=== PATIENT | male | born 1940 | race Caucasian/White ===

== ENCOUNTER 2019-02-19 12:59 | Inpatient (IN) | payer MEDICARE ==
--- NOTE | 2019-02-19 14:11 | EDM.PDOC ---
ED HPI GENERAL MEDICAL PROBLEM - General Chief Complaint: Lower Extremity Injury/Pain Stated Complaint: MEDICAL VIA [facility] Time Seen by Provider: 02/19/19 14:03 Source of Information: Reports: Patient, EMS, Family - History of Present Illness INITIAL COMMENTS - FREE TEXT/NARRATIVE: Patient presents by ambulance from home after caretakers noticed he was having trouble supporting himself with his right leg. They last saw him at 0700 hrs. and he was moving around without difficulty. They were observing him approximately 1300 hrs. and noticed that he was having trouble supporting his right side when he was standing. The foot and ankle would turn in and he would almost fall to the floor as she seemed unable to support himself. He has not had any new injury. No other recent illness change. Onset: Today, Sudden Duration: Hour(s): (6) Location: Reports: Lower Extremity, Right Severity: Mild Improves with: Reports: None Worsens with: Reports: Movement - Related Data Allergies Allergy/AdvReac Type Severity Reaction Status Date / Time No Known Allergies Allergy Verified 02/19/19 13:24 Home Meds: Home Meds Aspirin 325 mg PO DAILY 09/14/13 [History] Hydrochlorothiazide 25 mg PO DAILY 09/14/13 [History] Lisinopril 10 mg PO DAILY 09/14/13 [History] Simvastatin 20 mg PO BEDTIME 09/14/13 [History] Alendronate Sodium 70 mg PO WEEKLY 02/19/19 [History] Calcium Carbonate [Oyster Shell Calcium] 500 mg PO DAILY 02/19/19 [History] Cholecalciferol (Vitamin D3) [Vitamin D] 1 tab PO DAILY 02/19/19 [History] Furosemide [Lasix] 20 mg PO DAILY 02/19/19 [History] Past Medical History HEENT History: Reports: Impaired Vision Cardiovascular History: Reports: High Cholesterol, Hypertension Gastrointestinal History: Reports: None Genitourinary History: Reports: Prostate Disorder, Urinary Incontinence Musculoskeletal History: Reports: Arthritis Neurological History: Reports: TIA Psychiatric History: Reports: Dementia Endocrine/Metabolic History: Reports: Obesity/BMI 30+ - Past Surgical History Head Surgeries/Procedures: Reports: None Cardiovascular Surgical History: Reports: None GI Surgical History: Reports: Appendectomy, Hernia, Inguinal Male Surgical History: Reports: None Endocrine Surgical History: Reports: None Neurological Surgical History: Reports: None Musculoskeletal Surgical History: Reports: None Dermatological Surgical History: Reports: None Social & Family History - Tobacco Use Smoking Status *Q: Current Every Day Smoker Years of Tobacco use: 20 Packs/Tins Daily: 0.2 Used Tobacco, but Quit: No Second Hand Smoke Exposure: No - Caffeine Use Caffeine Use: Reports: Coffee - Recreational Drug Use Recreational Drug Use: No - Living Situation & Occupation Living situation: Reports: , with Family Occupation: Retired Review of Systems - Review of Systems Review Of Systems: See Below Constitutional: Reports: No Symptoms Nose: Reports: No Symptoms Respiratory: Reports: No Symptoms Cardiovascular: Reports: No Symptoms. Denies: Chest Pain GI/Abdominal: Reports: No Symptoms Musculoskeletal: Reports: Muscle Pain Neurological: Reports: Tingling (Right leg), Difficulty Walking (Can't bear weight on right leg. Needs assistance to move about.) Psychiatric: Reports: Other (Cognitive deficiency) ED EXAM, GENERAL - Physical Exam Exam: See Below Free Text/Narrative:: Patient is in no distress sitting upright on the cart. 2 of his daughters are in attendance. Exam Limited By: No Limitations General Appearance: Alert, No Apparent Distress Throat/Mouth: Normal Inspection Neck: Normal Inspection Respiratory/Chest: No Respiratory Distress Cardiovascular: Regular Rate, Rhythm GI/Abdominal: Normal Bowel Sounds, Soft, Non-Tender Extremities: Pedal Edema, Other (Resisted right hip and knee extension shows weakness. Flexion challenge with a right leg shows reasonably good strength. There is bilateral long-term edema in the legs. Dorsiflexion of the right foot is weak but plantar flexion shows moderately good strength.) Neurological: Memory Loss Remote Events Psychiatric: Normal Affect Course - Vital Signs Last Recorded V/S: Last Vital Signs Temp 37.1 C 02/19/19 18:26 Pulse 79 02/19/19 18:26 Resp 16 02/19/19 18:26 BP 136/75 02/19/19 18:26 Pulse Ox 96 02/19/19 18:26 - Orders/Labs/Meds Orders: Active Orders 24 hr Category Date Time Status Patient Status Manage Transfer [TRANSFER] Routine ADT 02/19/19 19:48 Active Resuscitation Status Routine Resus Stat 02/19/19 19:51 Ordered Labs: Laboratory Tests 02/19/19 02/19/19 02/19/19 Range/Units 14:25 14:25 14:25 WBC 12.2 H (4.5-11.0) K/uL RBC 5.26 (4.30-5.90) M/uL Hgb 13.5 (12.0-15.0) g/dL Hct 44.0 (40.0-54.0) % MCV 84 (80-98) fL MCH 26 L (27-31) pg MCHC 31 L (32-36) % Plt Count 293 (150-400) K/uL Neut % (Auto) 73 H (36-66) % Lymph % (Auto) 10 L (24-44) % [place] % (Auto) 13 H (2-6) % Eos % (Auto) 3 (2-4) % Baso % (Auto) 0 (0-1) % PT 10.7 (9.5-12.0) sec INR 0.97 (0.80-1.20) Sodium 142 (140-148) mmol/L Potassium 4.1 (3.6-5.2) mmol/L Chloride 105 (100-108) mmol/L Carbon Dioxide 30 (21-32) mmol/L Anion Gap 7.0 (5.0-14.0) mmol/L BUN 29 H (7-18) mg/dL Creatinine 1.6 H (0.8-1.3) mg/dL Est Cr Clr Drug Dosing 36.15 mL/min Estimated GFR (MDRD) 42 L (>60) Glucose 104 (74-106) mg/dL Calcium 9.4 (8.5-10.1) mg/dL Total Bilirubin 0.3 (0.2-1.0) mg/dL AST 15 (15-37) U/L ALT 20 (12-78) U/L Alkaline Phosphatase 69 (46-116) U/L Total Protein 6.6 (6.4-8.2) g/dL Albumin 2.9 L (3.4-5.0) g/dL Globulin 3.7 H (2.3-3.5) g/dL Albumin/Globulin Ratio 0.8 L (1.2-2.2) - Radiology Interpretation Free Text/Narrative:: CT scan of head, noncontrast, shows age-related atrophy but no evidence of hemorrhage or other acute changes. There is ventriculomegaly noted. - Re-Assessments/Exams Free Text/Narrative Re-Assessment/Exam: 02/19/19 19:50 I reviewed test results and imaging findings with patient and daughters. This still seems to be an ischemic stroke event. He has been outside of any treatment window since before he arrived here. Additionally, I discussed that given his current renal function, even transfer so more else for further diagnostic workup may be ill-advised because of potential worsening of renal function. Even if MRI imaging was obtained in a few days and an abnormality was found, he and family do not feel they would want any intervention performed. I reviewed his case with Dr. White, the hospitalist of the day. He accepts the patient for admission here. Departure - Departure Time of Disposition: 18:30 Disposition: Admitted As Inpatient 67 Condition: Good Clinical Impression: Stroke - Discharge Information *PRESCRIPTION DRUG MONITORING PROGRAM REVIEWED*: Not Applicable *COPY OF PRESCRIPTION DRUG MONITORING REPORT IN PATIENT MOHIT: Not Applicable Referrals: Deven Arriaza NP [Primary Care Provider] - Forms: ED Department Discharge
--- NOTE | 2019-02-19 14:52 | CRLCT ---
INDICATION: New right leg extensor weakness TECHNIQUE: CT head without contrast. COMPARISON: None available FINDINGS: There is age-related cerebral and cerebellar cortical atrophy. There is ventriculomegaly which appears out of proportion to the degree of cortical atrophy. There is no mass effect or midline shift. White matter hypodensities are suggestive of advanced chronic small vessel ischemic changes. There are chronic ganglionic, caudate head, and thalamic lacunar infarcts. There is no loss of case-white differentiation. There is no evidence of an acute intracranial hemorrhage. No acute calvarial fracture is seen. There is a 2.4 x 1.2 cm right occipital scalp soft tissue density, nonspecific. The visualized paranasal sinuses and mastoid air cells are clear. The visualized orbits are within normal limits. IMPRESSION: No evidence of an acute intracranial hemorrhage, mass effect or loss of case-white differentiation. Ventriculomegaly which appears out of proportion to the degree of cortical atrophy. Correlate clinically to exclude communicating hydrocephalus. Chronic ischemic changes with old lacunar infarcts. A 2.4 cm right occipital scalp soft tissue density, nonspecific. Correlate with physical exam. Dictated by Slava Duarte MD @ 02/19/2019 2:51:24 PM Please note that all CT scans at this facility use dose modulation, iterative reconstruction, and/or weight-based dosing when appropriate to reduce radiation dose to as low as reasonably achievable. Dictated by: Slava Duarte MD @ 02/19/2019 14:51:29 (Electronically Signed)
--- NOTE | 2019-02-19 20:02 | PCM.HP ---
H&P History of Present Illness - General Date of Service: 02/19/19 Admit Problem/Dx: Admission Diagnosis/Problem Admission Diagnosis/Problem CVA, Cerebrovascular accident Source of Information: Patient, Family, Provider, RN Notes Reviewed History Limitations: Reports: Altered Mental Status (Dementia), Other ( Expressive aphasia) - History of Present Illness Initial Comments - Free Text/Narative: Mr. Clemens is a 78-year-old gentleman who was admitted through the emergency department with right leg weakness and dehydration secondary to acute CVA. He has a known history of cerebrovascular disease and his had previous cerebrovascular accidents, main residual effect is expressive aphasia. He was well when he got up this morning and was able to get himself into the bathroom. Mid morning was unable to get up and had only minimal strength in his right leg. He was brought into the emergency department for further evaluation, by the time he arrived here the six-hour window had passed. He denies any other new neurologic symptoms, family reports is degree of expressive aphasia is stable from baseline. He is not interested in pursuing further aggressive evaluation. He does have some underlying dementia including short and long-term memory impairment. Family confirms that they do not want to consider further aggressive interventions including MRI, MRA, echocardiogram or other evaluations. They prefer at this time more of a palliative care approach to management. - Related Data Allergies/Adverse Reactions: Allergies Allergy/AdvReac Type Severity Reaction Status Date / Time No Known Allergies Allergy Verified 02/19/19 13:24 Home Medications: Home Meds Aspirin 325 mg PO DAILY 09/14/13 [History] Hydrochlorothiazide 25 mg PO DAILY 09/14/13 [History] Lisinopril 10 mg PO DAILY 09/14/13 [History] Simvastatin 20 mg PO BEDTIME 09/14/13 [History] Alendronate Sodium 70 mg PO WEEKLY 02/19/19 [History] Calcium Carbonate [Oyster Shell Calcium] 500 mg PO DAILY 02/19/19 [History] Cholecalciferol (Vitamin D3) [Vitamin D] 1 tab PO DAILY 02/19/19 [History] Furosemide [Lasix] 20 mg PO DAILY 02/19/19 [History] Past Medical History HEENT History: Reports: Impaired Vision Cardiovascular History: Reports: High Cholesterol, Hypertension Gastrointestinal History: Reports: None Genitourinary History: Reports: Prostate Disorder, Urinary Incontinence Musculoskeletal History: Reports: Arthritis Neurological History: Reports: TIA Psychiatric History: Reports: Dementia Endocrine/Metabolic History: Reports: Obesity/BMI 30+ - Past Surgical History Head Surgeries/Procedures: Reports: None Cardiovascular Surgical History: Reports: None GI Surgical History: Reports: Appendectomy, Hernia, Inguinal Male Surgical History: Reports: None Endocrine Surgical History: Reports: None Neurological Surgical History: Reports: None Musculoskeletal Surgical History: Reports: None Dermatological Surgical History: Reports: None Social & Family History - Tobacco Use Smoking Status *Q: Current Every Day Smoker Years of Tobacco use: 20 Packs/Tins Daily: 0.2 Used Tobacco, but Quit: No Second Hand Smoke Exposure: No - Caffeine Use Caffeine Use: Reports: Coffee - Recreational Drug Use Recreational Drug Use: No - Living Situation & Occupation Living situation: Reports: , with Family Occupation: Retired H&P Review of Systems - Review of Systems: Review Of Systems: See Below General: Reports: No Symptoms HEENT: Reports: No Symptoms Pulmonary: Reports: No Symptoms Cardiovascular: Reports: No Symptoms Gastrointestinal: Reports: No Symptoms Genitourinary: Reports: No Symptoms Musculoskeletal: Reports: No Symptoms Skin: Reports: No Symptoms Psychiatric: Reports: Confusion. Denies: Agitation Neurological: Reports: Confusion, Pre-Existing Deficit (Expressive aphasia), Difficulty Walking, Weakness (Right lower extremity). Denies: Numbness, Change in Speech (Baseline expressive aphasia) Hematologic/Lymphatic: Reports: No Symptoms Immunologic: Reports: No Symptoms Exam - Exam Exam: See Below - Vital Signs Vital Signs: Last Vital Signs Temp 98.8 F 02/19/19 18:26 Pulse 79 02/19/19 18:26 Resp 16 02/19/19 18:26 BP 136/75 02/19/19 18:26 Pulse Ox 96 02/19/19 18:26 Weight: 200 lb - Exam General: Alert, Cooperative, Mild Distress. No: Oriented HEENT: PERRLA, EOMI, Hearing Intact, Normal Nasal Septum, Posterior Pharynx Clear. No: Mucosa Moist & [place] Neck: Supple, Trachea Midline, +2 Carotid Pulse wo Bruit Lungs: Clear to Auscultation, Normal Respiratory Effort, Decreased Breath Sounds Cardiovascular: Regular Rate, Regular Rhythm, Normal S1, Normal S2. No: Systolic Murmur, Diastolic Murmur GI/Abdominal Exam: Soft, Non-Tender, No Organomegaly, No Distention Back Exam: Normal Inspection, Full Range of Motion Extremities: Non-Tender, Pedal Edema Skin: Warm, Dry, Intact Neurological: Cranial Nerves Intact, Other (Severe weakness to plantar flexion and dorsi flexion of the fourth, moderate weakness to extension the leg at the knee and severe weakness with flexion). No: Strength Equal Bilateral, Normal Speech, Normal Tone Neuro Extensive - Motor, Sensory, Reflexes: Babinski (On the right) - Patient Data Lab Results Last 24 hrs: Laboratory Results - last 24 hr 02/19/19 02/19/19 02/19/19 Range/Units 14:25 14:25 14:25 WBC 12.2 H (4.5-11.0) K/uL RBC 5.26 (4.30-5.90) M/uL Hgb 13.5 (12.0-15.0) g/dL Hct 44.0 (40.0-54.0) % MCV 84 (80-98) fL MCH 26 L (27-31) pg MCHC 31 L (32-36) % Plt Count 293 (150-400) K/uL Neut % (Auto) 73 H (36-66) % Lymph % (Auto) 10 L (24-44) % [place] % (Auto) 13 H (2-6) % Eos % (Auto) 3 (2-4) % Baso % (Auto) 0 (0-1) % PT 10.7 (9.5-12.0) sec INR 0.97 (0.80-1.20) Sodium 142 (140-148) mmol/L Potassium 4.1 (3.6-5.2) mmol/L Chloride 105 (100-108) mmol/L Carbon Dioxide 30 (21-32) mmol/L Anion Gap 7.0 (5.0-14.0) mmol/L BUN 29 H (7-18) mg/dL Creatinine 1.6 H (0.8-1.3) mg/dL Est Cr Clr Drug Dosing 36.15 mL/min Estimated GFR (MDRD) 42 L (>60) Glucose 104 (74-106) mg/dL Calcium 9.4 (8.5-10.1) mg/dL Total Bilirubin 0.3 (0.2-1.0) mg/dL AST 15 (15-37) U/L ALT 20 (12-78) U/L Alkaline Phosphatase 69 (46-116) U/L Total Protein 6.6 (6.4-8.2) g/dL Albumin 2.9 L (3.4-5.0) g/dL Globulin 3.7 H (2.3-3.5) g/dL Albumin/Globulin Ratio 0.8 L (1.2-2.2) Result Diagrams: 02/19/19 14:25 02/19/19 14:25 *Q Meaningful Use (ADM) - VTE Risk Assess *Q Each Risk Factor Represents 1 Point: Swollen Legs, Current, Obesity ( BMI > 25 kg/m2) Total Score 1 Point Risk Factors: 2 Each Risk Factor Represents 2 Points: None Total Score 2 Point Risk Factors: 0 Each Risk Factor Represents 3 Points: Age 75 Years or Greater Total Score 3 Point Risk Factors: 3 Each Risk Factor Represents 5 Points: Stroke, Less than 1 Month Total Score 5 Point Risk Factors: 5 Venous Thromboembolism Risk Factor Score *Q: 10 Problem List Initiated/Reviewed/Updated: Yes Orders Last 24hrs: Active Orders 24 hr Category Date Time Status Patient Status Manage Transfer [TRANSFER] Routine ADT 02/19/19 19:48 Ordered Resuscitation Status Routine Resus Stat 02/19/19 19:51 Ordered Assessment/Plan Comment:: ASSESSMENT AND PLAN ACUTE LEFT-SIDED CVA-associated with new weakness of the right lower extremity. He is unable to get himself up out of a chair or bed, unable to stand or ambulate. Skin of the head obtained in the emergency department shows evidence of previous lacunar infarcts, no acute hemorrhage. After discussion with patient and family they do not want to proceed with further evaluation or intervention. We discussed addition of Plavix to current medical regimen, they do not want to proceed with this plan at the present time. -Physical therapy consult in a.m. 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 DEHYDRATION-history of dark urine, tenting of the skin with dry oral mucosal membranes -IV fluids for hydration overnight HYPERTENSION -Continue outpatient medical regimen MILD LEUKOCYTOSIS-history of recurrent urinary tract infections -Urinalysis pending PALLIATIVE CARE-there would like to manage mainly for comfort and do not want to consider further aggressive interventions or evaluation MAINTENANCE ISSUES -DVT prophylaxis; Lovenox 40 mg subcutaneous daily -GI prophylaxis; not indicated -Fox catheter; not indicated -Nutrition; regular diet -Nicotine dependence; not required CODE STATUS-FULL CODE ADMISSION STATUS-patient will be admitted to inpatient status, expect at least a 2 night hospital stay for evaluation and management of problems as outlined above. At the time of this admission I do not reasonably expected evaluation and management of this problem will require more than a 96 hour hospital stay. DISPOSITION-anticipate discharge to home after the hospital stay. PRIMARY CARE PROVIDER-Deven Barber
[2019-02-19] MEDS ORDERED: Acetaminophen 325 MG Tab PO PRN (20:55)
[2019-02-19] MEDS ORDERED: Enoxaparin 40 MG/0.4 ML Syringe SUBCUT SCH (20:55)
[2019-02-19] MEDS ORDERED: Ondansetron 4 MG/2 ML SDV IV PRN (20:55)
[2019-02-19] MEDS ORDERED: Sodium Chloride 0.9% 10 ML Syringe FLUSH PRN (20:55)
[2019-02-19] MEDS ORDERED: Lactated Ringers 1,000 ML IV SCH (20:55)
[2019-02-19] MEDS ORDERED: Polyethylene Glycol 3350 Powder 17 GM Packet PO PRN (20:55)
[2019-02-19] MEDS: Simvastatin 20 MG Tab PO SCH (22:22)
[2019-02-20] MEDS: Furosemide 20 MG Tab PO SCH (08:46)
[2019-02-20] MEDS: Aspirin 325 MG Tab.EC PO SCH (08:46)
[2019-02-20] MEDS: Hydrochlorothiazide 25 MG Tab PO SCH (08:46)
[2019-02-20] MEDS: Lisinopril 10 MG Tab PO SCH (08:46)
[2019-02-20] MEDS ORDERED: Lisinopril 20 MG Tab PO SCH (09:00)
--- NOTE | 2019-02-20 11:23 | PCM.PN ---
- General Info Date of Service: 02/20/19 Subjective Update: Mr. Clemens has remained stable since admission, there have been no neurologic symptoms or findings. Right leg strength is modestly improved today. Cardiac monitoring did show frequent PACs and PVCs but no evidence of atrial fibrillation. Functional Status: Reports: Tolerating Diet, Urinating. Denies: Ambulating - Review of Systems General: Reports: Weakness. Denies: Fever, Chills Pulmonary: Reports: No Symptoms Cardiovascular: Reports: No Symptoms Gastrointestinal: Reports: No Symptoms Neurological: Reports: Difficulty Walking (Persistent right leg weakness) - Patient Data Vitals - Most Recent: Last Vital Signs Temp 97.0 F 02/20/19 10:54 Pulse 67 02/20/19 10:54 Resp 16 02/20/19 10:54 BP 124/51 L 02/20/19 10:54 Pulse Ox 96 02/20/19 10:54 Weight - Most Recent: 194 lb 12.8 oz I&O - Last 24 Hours: Intake & Output 02/19/19 02/20/19 02/20/19 22:59 06:59 14:59 Intake Total 2134 480 Balance 2134 480 Lab Results Last 24 Hours: Laboratory Results - last 24 hr 02/19/19 02/19/19 02/19/19 Range/Units 14:25 14:25 14:25 WBC 12.2 H (4.5-11.0) K/uL RBC 5.26 (4.30-5.90) M/uL Hgb 13.5 (12.0-15.0) g/dL Hct 44.0 (40.0-54.0) % MCV 84 (80-98) fL MCH 26 L (27-31) pg MCHC 31 L (32-36) % Plt Count 293 (150-400) K/uL Neut % (Auto) 73 H (36-66) % Lymph % (Auto) 10 L (24-44) % [place] % (Auto) 13 H (2-6) % Eos % (Auto) 3 (2-4) % Baso % (Auto) 0 (0-1) % PT 10.7 (9.5-12.0) sec INR 0.97 (0.80-1.20) Sodium 142 (140-148) mmol/L Potassium 4.1 (3.6-5.2) mmol/L Chloride 105 (100-108) mmol/L Carbon Dioxide 30 (21-32) mmol/L Anion Gap 7.0 (5.0-14.0) mmol/L BUN 29 H (7-18) mg/dL Creatinine 1.6 H (0.8-1.3) mg/dL Est Cr Clr Drug Dosing 36.15 mL/min Estimated GFR (MDRD) 42 L (>60) Glucose 104 (74-106) mg/dL Calcium 9.4 (8.5-10.1) mg/dL Total Bilirubin 0.3 (0.2-1.0) mg/dL AST 15 (15-37) U/L ALT 20 (12-78) U/L Alkaline Phosphatase 69 (46-116) U/L Total Protein 6.6 (6.4-8.2) g/dL Albumin 2.9 L (3.4-5.0) g/dL Globulin 3.7 H (2.3-3.5) g/dL Albumin/Globulin Ratio 0.8 L (1.2-2.2) Urine Color Urine Appearance Urine pH (4.5-8.0) Ur Specific [place] (1.008-1.030) Urine Protein (NEGATIVE) mg/dL Urine Glucose (UA) (NEGATIVE) mg/dL Urine Ketones (NEGATIVE) mg/dL Urine Occult Blood (NEGATIVE) Urine Nitrite (NEGAITVE) Urine Bilirubin (NEGATIVE) Urine Urobilinogen (NORMAL) mg/dL Ur Leukocyte Esterase (NEGATIVE) Urine RBC (0-5) Urine WBC (0-5) Ur Epithelial Cells Amorphous Sediment Urine Bacteria Urine Mucus 02/20/19 Range/Units 03:15 WBC (4.5-11.0) K/uL RBC (4.30-5.90) M/uL Hgb (12.0-15.0) g/dL Hct (40.0-54.0) % MCV (80-98) fL MCH (27-31) pg MCHC (32-36) % Plt Count (150-400) K/uL Neut % (Auto) (36-66) % Lymph % (Auto) (24-44) % [place] % (Auto) (2-6) % Eos % (Auto) (2-4) % Baso % (Auto) (0-1) % PT (9.5-12.0) sec INR (0.80-1.20) Sodium (140-148) mmol/L Potassium (3.6-5.2) mmol/L Chloride (100-108) mmol/L Carbon Dioxide (21-32) mmol/L Anion Gap (5.0-14.0) mmol/L BUN (7-18) mg/dL Creatinine (0.8-1.3) mg/dL Est Cr Clr Drug Dosing mL/min Estimated GFR (MDRD) (>60) Glucose (74-106) mg/dL Calcium (8.5-10.1) mg/dL Total Bilirubin (0.2-1.0) mg/dL AST (15-37) U/L ALT (12-78) U/L Alkaline Phosphatase (46-116) U/L Total Protein (6.4-8.2) g/dL Albumin (3.4-5.0) g/dL Globulin (2.3-3.5) g/dL Albumin/Globulin Ratio (1.2-2.2) Urine Color Yellow Urine Appearance Clear Urine pH 8.0 (4.5-8.0) Ur Specific [place] 1.005 L (1.008-1.030) Urine Protein Negative (NEGATIVE) mg/dL Urine Glucose (UA) Normal (NEGATIVE) mg/dL Urine Ketones Negative (NEGATIVE) mg/dL Urine Occult Blood Negative (NEGATIVE) Urine Nitrite Negative (NEGAITVE) Urine Bilirubin Negative (NEGATIVE) Urine Urobilinogen Normal (NORMAL) mg/dL Ur Leukocyte Esterase Negative (NEGATIVE) Urine RBC Not seen (0-5) Urine WBC Not seen (0-5) Ur Epithelial Cells Not seen Amorphous Sediment Rare Urine Bacteria Not seen Urine Mucus Not seen Med Orders - Current: Current Medications Acetaminophen (Tylenol) 650 mg PO Q4H PRN PRN Reason: Pain (Mild 1-3)/fever Aspirin (Ecotrin) 325 mg PO DAILY [facility] Last Admin: 02/20/19 08:46 Dose: 325 mg Enoxaparin Sodium (Lovenox) 40 mg SUBCUT Q24H [facility] Furosemide (Lasix) 20 mg PO DAILY [facility] Last Admin: 02/20/19 08:46 Dose: 20 mg Hydrochlorothiazide (Hydrochlorothiazide) 25 mg PO DAILY [facility] Last Admin: 02/20/19 08:46 Dose: 25 mg Lisinopril (Prinivil) 10 mg PO DAILY [facility] Last Admin: 02/20/19 08:46 Dose: 10 mg Ondansetron HCl (Zofran) 4 mg IV Q4H PRN PRN Reason: Nausea/Vomiting Polyethylene Glycol (Miralax) 17 gm PO DAILY PRN PRN Reason: Constipation Simvastatin (Zocor) 20 mg PO BEDTIME [facility] Last Admin: 02/19/19 22:22 Dose: 20 mg Sodium Chloride (Saline Flush) 10 ml FLUSH ASDIRECTED PRN PRN Reason: Keep Vein Open Discontinued Medications Enoxaparin Sodium (Lovenox) 40 mg SUBCUT DAILY [facility] Last Admin: 02/19/19 22:22 Dose: 40 mg Lactated Ringer's (Ringers, Lactated) 1,000 mls @ 125 mls/hr IV ASDIRECTED [facility] Stop: 02/20/19 08:56 Last Admin: 02/20/19 04:17 Dose: 125 mls/hr - Exam General: Alert, Oriented, Cooperative, Mild Distress Lungs: Clear to Auscultation, Normal Respiratory Effort Cardiovascular: Regular Rate, Regular Rhythm, No Murmurs GI/Abdominal Exam: Soft, Non-Tender, No Organomegaly Neurological: Other (Persistent weakness right leg, chronic expressive aphasia) - Problem List Review Problem List Initiated/Reviewed/Updated: Yes - My Orders Last 24 Hours: My Active Orders 02/19/19 19:51 Resuscitation Status Routine 02/19/19 20:55 Patient Status [ADT] Routine Height and Weight [RC] DAILY Intake and Output [RC] QSHIFT Notify Provider Vital Signs [RC] ASDIRECTED Oxygen Therapy [RC] PRN Peripheral IV Care [RC] . DIRECTED Up With Assistance [RC] ASDIRECTED Up to Chair [RC] QID Vital Signs [RC] Q4H PT Evaluation and Treatment [CONS] Routine Acetaminophen [Tylenol] 650 mg PO Q4H PRN Ondansetron [Zofran] 4 mg IV Q4H PRN Polyethylene Glycol 3350 [MiraLAX] 17 gm PO DAILY PRN Sodium Chloride 0.9% [Saline Flush] 10 ml FLUSH ASDIRECTED PRN Peripheral IV Insertion Adult [OM.PC] Routine 02/19/19 21:00 Simvastatin [Zocor] 20 mg PO BEDTIME 02/19/19 Dinner Regular Diet [DIET] 02/20/19 09:00 Aspirin [Ecotrin] 325 mg PO DAILY Furosemide [Lasix] 20 mg PO DAILY Lisinopril [Prinivil] 10 mg PO DAILY hydroCHLOROthiazide 25 mg PO DAILY 02/20/19 21:00 Enoxaparin [Lovenox] 40 mg SUBCUT Q24H - Plan Plan:: ASSESSMENT AND PLAN ACUTE LEFT-SIDED CVA-associated with new weakness of the right lower extremity. He is unable to get himself up out of a chair or bed, unable to stand or ambulate. CT scan of the head obtained in the emergency department shows evidence of previous lacunar infarcts, no acute hemorrhage. After discussion with patient and family they do not want to proceed with further evaluation or intervention. We discussed addition of Plavix to current medical regimen, they do not want to proceed with this plan at the present time. 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 DEHYDRATION-resolved with hydration -Saline lock IV HYPERTENSION -Continue outpatient medical regimen MILD LEUKOCYTOSIS-history of recurrent urinary tract infections, urinalysis obtained and was clear showing no evidence of infection PALLIATIVE CARE-patient and family would like to manage mainly for comfort and do not want to consider further aggressive interventions or evaluation MAINTENANCE ISSUES -DVT prophylaxis; Lovenox 40 mg subcutaneous daily -GI prophylaxis; not indicated -Fox catheter; not indicated -Nutrition; regular diet -Nicotine dependence; not required CODE STATUS-DNR/DNI ADMISSION STATUS-patient will be admitted to inpatient status, expect at least a 2 night hospital stay for evaluation and management of problems as outlined above. At the time of this admission I do not reasonably expected evaluation and management of this problem will require more than a 96 hour hospital stay. DISPOSITION-anticipate discharge to shelter for restorative physical therapy and occupational therapy. Because of the weekend we will be unable to obtain shelter placement until Friday, February 22 at the earliest PRIMARY CARE PROVIDER-Deven Barber
[2019-02-20] MEDS: Simvastatin 20 MG Tab PO SCH (20:53)
[2019-02-20] MEDS: Enoxaparin 40 MG/0.4 ML Syringe SUBCUT SCH (20:53)
[2019-02-21] MEDS: Hydrochlorothiazide 25 MG Tab PO SCH (09:14)
[2019-02-21] MEDS: Lisinopril 10 MG Tab PO SCH (09:15)
[2019-02-21] MEDS: Aspirin 325 MG Tab.EC PO SCH (09:15)
[2019-02-21] MEDS: Furosemide 20 MG Tab PO SCH (09:15)
--- NOTE | 2019-02-21 11:07 | PCM.PN ---
- General Info Date of Service: 02/21/19 Subjective Update: Mr. Clemens has been stable since yesterday, no significant improvement noted in his right leg weakness. Denies any new neurologic symptoms in his otherwise been stable with good vital signs and no significant temperature elevations. Functional Status: Reports: Tolerating Diet, Urinating - Review of Systems General: Denies: Fever, Chills Pulmonary: Reports: No Symptoms Cardiovascular: Reports: No Symptoms Gastrointestinal: Reports: No Symptoms Neurological: Reports: Difficulty Walking, Weakness (Persistent weakness right lower extremity) - Patient Data Vitals - Most Recent: Last Vital Signs Temp 97.7 F 02/21/19 07:18 Pulse 71 02/21/19 07:18 Resp 16 02/21/19 07:18 BP 124/66 02/21/19 09:15 Pulse Ox 96 02/21/19 07:18 Weight - Most Recent: 194 lb 12.8 oz I&O - Last 24 Hours: Intake & Output 02/20/19 02/21/19 02/21/19 22:59 06:59 14:59 Intake Total 200 Output Total 100 Balance 200 -100 Med Orders - Current: Current Medications Acetaminophen (Tylenol) 650 mg PO Q4H PRN PRN Reason: Pain (Mild 1-3)/fever Aspirin (Ecotrin) 325 mg PO DAILY [facility] Last Admin: 02/21/19 09:15 Dose: 325 mg Enoxaparin Sodium (Lovenox) 40 mg SUBCUT Q24H [facility] Last Admin: 02/20/19 20:53 Dose: 40 mg Furosemide (Lasix) 20 mg PO DAILY [facility] Last Admin: 02/21/19 09:15 Dose: 20 mg Hydrochlorothiazide (Hydrochlorothiazide) 25 mg PO DAILY [facility] Last Admin: 02/21/19 09:14 Dose: 25 mg Lisinopril (Prinivil) 10 mg PO DAILY [facility] Last Admin: 02/21/19 09:15 Dose: 10 mg Ondansetron HCl (Zofran) 4 mg IV Q4H PRN PRN Reason: Nausea/Vomiting Polyethylene Glycol (Miralax) 17 gm PO DAILY PRN PRN Reason: Constipation Simvastatin (Zocor) 20 mg PO BEDTIME [facility] Last Admin: 02/20/19 20:53 Dose: 20 mg Sodium Chloride (Saline Flush) 10 ml FLUSH ASDIRECTED PRN PRN Reason: Keep Vein Open Discontinued Medications Enoxaparin Sodium (Lovenox) 40 mg SUBCUT DAILY [facility] Last Admin: 02/19/19 22:22 Dose: 40 mg Lactated Ringer's (Ringers, Lactated) 1,000 mls @ 125 mls/hr IV ASDIRECTED [facility] Stop: 02/20/19 08:56 Last Admin: 02/20/19 04:17 Dose: 125 mls/hr - Exam Quality Assessment: DVT Prophylaxis General: Alert, Cooperative, Mild Distress Lungs: Clear to Auscultation, Normal Respiratory Effort Cardiovascular: Regular Rate, Regular Rhythm, No Murmurs GI/Abdominal Exam: Soft, Non-Tender, No Organomegaly, No Distention Extremities: Non-Tender, Pedal Edema Skin: Warm, Dry Neurological: Other (Persistent weakness right lower extremity, unchanged from yesterday) - Problem List Review Problem List Initiated/Reviewed/Updated: Yes - My Orders Last 24 Hours: My Active Orders 02/20/19 21:00 Enoxaparin [Lovenox] 40 mg SUBCUT Q24H - Plan Plan:: ASSESSMENT AND PLAN ACUTE LEFT-SIDED CVA-associated with new weakness of the right lower extremity. He is unable to get himself up out of a chair or bed, unable to stand or ambulate. CT scan of the head obtained in the emergency department shows evidence of previous lacunar infarcts, no acute hemorrhage. After discussion with patient and family they do not want to proceed with further evaluation or intervention. We discussed addition of Plavix to current medical regimen, they do not want to proceed with this plan at the present time. 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 DEHYDRATION-resolved with hydration -Saline lock IV HYPERTENSION -Continue outpatient medical regimen MILD LEUKOCYTOSIS-history of recurrent urinary tract infections, urinalysis obtained and was clear showing no evidence of infection PALLIATIVE CARE-patient and family would like to manage mainly for comfort and do not want to consider further aggressive interventions or evaluation MAINTENANCE ISSUES -DVT prophylaxis; Lovenox 40 mg subcutaneous daily -GI prophylaxis; not indicated -Fox catheter; not indicated -Nutrition; regular diet -Nicotine dependence; not required CODE STATUS-DNR/DNI ADMISSION STATUS-patient will be admitted to inpatient status, expect at least a 2 night hospital stay for evaluation and management of problems as outlined above. At the time of this admission I do not reasonably expected evaluation and management of this problem will require more than a 96 hour hospital stay. DISPOSITION-anticipate discharge to [facility] for restorative physical therapy and occupational therapy. Because of the weekend we will be unable to obtain [facility] placement until Friday, February 22 at the earliest PRIMARY CARE PROVIDER-Deven Barber
[2019-02-21] MEDS: Enoxaparin 40 MG/0.4 ML Syringe SUBCUT SCH (21:11)
[2019-02-21] MEDS: Simvastatin 20 MG Tab PO SCH (21:11)
[2019-02-22] MEDS: Aspirin 325 MG Tab.EC PO SCH (09:29)
[2019-02-22] MEDS: Furosemide 20 MG Tab PO SCH (09:29)
[2019-02-22] MEDS: Lisinopril 10 MG Tab PO SCH (09:29)
[2019-02-22] MEDS: Hydrochlorothiazide 25 MG Tab PO SCH (09:29)
--- NOTE | 2019-02-22 14:47 | PCM.PN ---
- General Info Date of Service: 02/22/19 Subjective Update: There were no acute events overnight. Review of systems is somewhat difficult to gather because the patient has dementia and often has off the cuff answers for my questions. He doesn't think that his leg is moving any better but nursing and physical therapy have noted improvements in his ambulation. He does require an assist device to stand up and assistance with ambulation. No deficits in speech or arm noted on the left side. Waiting for [facility] placement for rehabilitation. Functional Status: Reports: Pain Controlled, Tolerating Diet - Review of Systems General: Reports: Weakness - Patient Data Vitals - Most Recent: Last Vital Signs Temp 36.2 C 02/22/19 12:07 Pulse 78 02/22/19 12:07 Resp 20 02/22/19 12:07 BP 115/49 L 02/22/19 12:07 Pulse Ox 96 02/22/19 12:07 Weight - Most Recent: 84.958 kg I&O - Last 24 Hours: Intake & Output 02/21/19 02/22/19 02/22/19 22:59 06:59 14:59 Intake Total 240 960 Balance 240 960 Med Orders - Current: Current Medications Acetaminophen (Tylenol) 650 mg PO Q4H PRN PRN Reason: Pain (Mild 1-3)/fever Last Admin: 02/22/19 07:44 Dose: 650 mg Aspirin (Ecotrin) 325 mg PO DAILY [facility] Last Admin: 02/22/19 09:29 Dose: 325 mg Enoxaparin Sodium (Lovenox) 40 mg SUBCUT Q24H [facility] Last Admin: 02/21/19 21:11 Dose: 40 mg Furosemide (Lasix) 20 mg PO DAILY [facility] Last Admin: 02/22/19 09:29 Dose: 20 mg Hydrochlorothiazide (Hydrochlorothiazide) 25 mg PO DAILY [facility] Last Admin: 02/22/19 09:29 Dose: 25 mg Lisinopril (Prinivil) 10 mg PO DAILY [facility] Last Admin: 02/22/19 09:29 Dose: 10 mg Ondansetron HCl (Zofran) 4 mg IV Q4H PRN PRN Reason: Nausea/Vomiting Polyethylene Glycol (Miralax) 17 gm PO DAILY PRN PRN Reason: Constipation Simvastatin (Zocor) 20 mg PO BEDTIME [facility] Last Admin: 05/19/19 21:11 Dose: 20 mg Sodium Chloride (Saline Flush) 10 ml FLUSH ASDIRECTED PRN PRN Reason: Keep Vein Open Discontinued Medications Enoxaparin Sodium (Lovenox) 40 mg SUBCUT DAILY [facility] Last Admin: 02/19/19 22:22 Dose: 40 mg Lactated Ringer's (Ringers, Lactated) 1,000 mls @ 125 mls/hr IV ASDIRECTED [facility] Stop: 02/20/19 08:56 Last Admin: 02/20/19 04:17 Dose: 125 mls/hr - Exam Quality Assessment: No: Supplemental Oxygen General: Alert, Cooperative, No Acute Distress Lungs: Clear to Auscultation, Normal Respiratory Effort Cardiovascular: Regular Rate, Regular Rhythm GI/Abdominal Exam: Soft, No Distention Extremities: No: Increased Warmth Skin: Other (1 cm scabbed wound right lower leg with mild erythema but no warmth distally ) Neurological: Other (right leg weak flex and extend at knee. Flex at hip and plantar flex same as left leg ) Psy/Mental Status: Alert, Normal Affect - Problem List Review Problem List Initiated/Reviewed/Updated: Yes - Plan Plan:: ASSESSMENT AND PLAN ACUTE LEFT-SIDED CVA - associated with new weakness of the right lower extremity. He is able to get out of bed with an assist device and requires assistance with ambulation. Strength seems a little bit better today. He was not interested in additional workup or changes in his management plan. -Physical therapy follow-up -Continue medical management -Awaiting safe discharge plan, hopefully bed will be available at [facility] tomorrow EXPRESSIVE APHASIA - secondary to previous CVA DEHYDRATION - resolved with hydration -Saline lock IV HYPERTENSION - stable. -Continue outpatient medical regimen PALLIATIVE CARE - patient and family would like to manage mainly for comfort and do not want to consider further aggressive interventions or evaluation MAINTENANCE ISSUES -DVT prophylaxis; Lovenox 40 mg subcutaneous daily -GI prophylaxis; not indicated -Fox catheter; not indicated -Nutrition; regular diet DISPOSITION - anticipate discharge to [facility] for restorative physical therapy and occupational therapy Shon Huynh M.D.
[2019-02-22] MEDS: Enoxaparin 40 MG/0.4 ML Syringe SUBCUT SCH (21:30)
[2019-02-22] MEDS: Simvastatin 20 MG Tab PO SCH (21:30)
[2019-02-23] MEDS: Hydrochlorothiazide 25 MG Tab PO SCH (08:36)
[2019-02-23] MEDS: Lisinopril 10 MG Tab PO SCH (08:37)
[2019-02-23] MEDS: Furosemide 20 MG Tab PO SCH (08:37)
[2019-02-23] MEDS: Aspirin 325 MG Tab.EC PO SCH (08:37)
--- NOTE | 2019-02-23 11:36 | PCM.DCSUM1 ---
Discharge Summary - Hospital Course Brief History: 78-year-old male with history of previous cerebrovascular disease and Alzheimer's dementia who presented with right leg weakness. Workup was concerning for left-sided stroke but patient requested a palliative approach and was admitted to our hospital for monitoring and physical therapy. Diagnosis: Stroke: Yes Modified Dee Scale: Mod.Sev.Disability ;Unable to Walk/Attend Bodily Needs W/ O Assistance Modified [place] Scale Score: 4 - Discharge Data Discharge Date: 02/23/19 Discharge Disposition: DC/Tfer to SNF 03 Condition: Fair - Discharge Diagnosis/Problem(s) (1) Left-sided cerebrovascular accident (CVA) SNOMED Code(s): 990936572 ICD Code: I63.9 - CEREBRAL INFARCTION, UNSPECIFIED Status: Acute Current Visit: Yes (2) Dementia without behavioral disturbance SNOMED Code(s): 23785497 ICD Code: F03.90 - UNSPECIFIED DEMENTIA WITHOUT BEHAVIORAL DISTURBANCE Status: Chronic Current Visit: No Qualifiers: Dementia type: Alzheimer's disease Alzheimer's disease onset: late-onset Qualified Code(s): G30.1 - Alzheimer's disease with late onset; F02.80 - Dementia in other diseases classified elsewhere without behavioral disturbance (3) Essential hypertension SNOMED Code(s): 97649361 ICD Code: I10 - ESSENTIAL (PRIMARY) HYPERTENSION Status: Chronic Current Visit: No (4) CKD (chronic kidney disease) SNOMED Code(s): 084377009 ICD Code: N18.9 - CHRONIC KIDNEY DISEASE, UNSPECIFIED Status: Chronic Current Visit: No Qualifiers: Chronic kidney disease stage: stage 3 (moderate) Qualified Code(s): N18.3 - Chronic kidney disease, stage 3 (moderate) - Patient Summary/Data Consults: Consultations 02/19/19 20:55 PT Evaluation and Treatment [CONS] Routine Please Evaluate and Treat. PT Reason for Consult: Acute CVA, right lower extremity weakness This query below is only for informational purposes and is not editable. Hospital Course: Valdemar presented to the emergency room with right leg weakness. This right leg weakness started multiple hours prior to presenting to the emergency room. There was concern that he had a stroke but the patient and family felt that even if he was inside the window for intervention they would not want to transfer for aggressive management. They did not want aggressive workup such as MRI or echocardiogram. They were not interested in medication changes and felt that keeping things the way they are would be in his best interest given his poor [id number] with dementia and previous deficits from cerebrovascular disease. He was admitted to the hospital so he could receive physical therapy and be monitored to see if his condition worsened. A head CT was obtained in the emergency room and this showed old ischemic changes but no obvious new acute changes. Over the next several days he has progressed some. He remains very weak in his right leg. He is able to move the leg against gravity but is not able to bear any weight on the leg. He is able to stand with an assist machine but is unable to stand for very long because of the right leg weakness. His vital signs have all remained stable. He is interested in some physical therapy with the hope that he can return to his setting at home safely. I think he would benefit from subacute rehabilitation and he is interested in this as well. [facility] will be transferred to the [facility] for subacute rehabilitation. He is stable and the benefits of transfer far outweigh the risks at this time. He is not safe for outpatient management at this time because he is unable to stand on his own and unable to bear any weight on the leg. - Patient Instructions Diet: Regular Diet as Tolerated Activity: As Tolerated Driving: Do Not Drive Showering/Bathing: May Shower Notify Provider of: Fever, Increased Pain Other/Special Instructions: 1. You were in the hospital for management of a left -sided cerebrovascular accident causing right leg weakness. At the time of admission you requested a palliative approach without aggressive interventions or medication changes. We have continued your usual medications. Your leg seems to be improving and getting stronger but at this time you still need significant assistance and I recommend subacute rehabilitation. 2. Continue your usual home medications as previously prescribed. 3. Referral to PT and OT for strengthening and ambulation after a left CVA left him with right leg weakness. No weight bearing restrictions. 4. Code status - DNR/DNI - Discharge Plan *PRESCRIPTION DRUG MONITORING PROGRAM REVIEWED*: Not Applicable *COPY OF PRESCRIPTION DRUG MONITORING REPORT IN PATIENT MOHIT: Not Applicable Prescriptions/Med Rec: Acetaminophen [Tylenol] 650 mg PO Q4H PRN #100 tablet PRN Reason: Pain (Mild 1-3)/fever Home Medications: Home Meds Aspirin 325 mg PO DAILY 09/14/13 [History] Hydrochlorothiazide 25 mg PO DAILY 12/10/13 [History] Lisinopril 10 mg PO DAILY 09/14/13 [History] Simvastatin 20 mg PO BEDTIME 09/14/13 [History] Alendronate Sodium 70 mg PO WEEKLY 02/19/19 [History] Calcium Carbonate [Oyster Shell Calcium] 500 mg PO DAILY 02/19/19 [History] Cholecalciferol (Vitamin D3) [Vitamin D] 1 tab PO DAILY 02/19/19 [History] Furosemide [Lasix] 20 mg PO DAILY 02/19/19 [History] Acetaminophen [Tylenol] 650 mg PO Q4H PRN #100 tablet 02/23/19 [Rx] Oxygen Therapy Mode: Room Air Patient Handouts: Ischemic Stroke, [id number] Referrals: Deven Arriaza SUPERVISOR TYPE DISK QUALITY CONTROL [Primary Care Provider] - (1-2 weeks - f/u hospital stay for stroke with right leg weakness) - Discharge Summary/Plan Comment DC Time >30 min.: Yes (40 - New [facility] discharge) - Patient Data Vitals - Most Recent: Last Vital Signs Temp 35.7 C 02/23/19 11:14 Pulse 67 02/23/19 11:14 Resp 16 02/23/19 11:14 BP 112/63 02/23/19 11:14 Pulse Ox 96 02/23/19 11:14 Weight - Most Recent: 84.958 kg I&O - Last 24 hours: Intake & Output 02/22/19 02/23/19 02/23/19 22:59 06:59 14:59 Intake Total 350 600 Output Total 0 Balance 350 600 0 Med Orders - Current: Current Medications Acetaminophen (Tylenol) 650 mg PO Q4H PRN PRN Reason: Pain (Mild 1-3)/fever Last Admin: 02/22/19 07:44 Dose: 650 mg Aspirin (Ecotrin) 325 mg PO DAILY [facility] Last Admin: 02/23/19 08:37 Dose: 325 mg Enoxaparin Sodium (Lovenox) 40 mg SUBCUT Q24H [facility] Last Admin: 02/22/19 21:30 Dose: 40 mg Furosemide (Lasix) 20 mg PO DAILY [facility] Last Admin: 02/23/19 08:37 Dose: 20 mg Hydrochlorothiazide (Hydrochlorothiazide) 25 mg PO DAILY [facility] Last Admin: 02/23/19 08:36 Dose: 25 mg Lisinopril (Prinivil) 10 mg PO DAILY [facility] Last Admin: 02/23/19 08:37 Dose: 10 mg Ondansetron HCl (Zofran) 4 mg IV Q4H PRN PRN Reason: Nausea/Vomiting Polyethylene Glycol (Miralax) 17 gm PO DAILY PRN PRN Reason: Constipation Simvastatin (Zocor) 20 mg PO BEDTIME [facility] Last Admin: 02/22/19 21:30 Dose: 20 mg Sodium Chloride (Saline Flush) 10 ml FLUSH ASDIRECTED PRN PRN Reason: Keep Vein Open Discontinued Medications Enoxaparin Sodium (Lovenox) 40 mg SUBCUT DAILY [facility] Last Admin: 02/19/19 22:22 Dose: 40 mg Lactated Ringer's (Ringers, Lactated) 1,000 mls @ 125 mls/hr IV ASDIRECTED [facility] Stop: 02/20/19 08:56 Last Admin: 02/20/19 04:17 Dose: 125 mls/hr - Exam Quality Assessment: Denies: Supplemental Oxygen General: Reports: Alert, Oriented, Cooperative, No Acute Distress Lungs: Reports: Normal Respiratory Effort GI/Abdominal Exam: Soft, No Distention Extremities: No Pedal Edema Neurological: Reports: No New Focal Deficit Psy/Mental Status: Reports: Alert, Normal Affect
== END 2019-02-23 15:17 | DRG 66 ==
LOC: JP.ED 12:59 → JP.MS 19:48
PROVIDERS: ADMIT Hospitalist; ATTEND Internal Medicine
DX: I63.89 Other cerebral infarction (principal); R20.2 Paresthesia of skin; R47.01 Aphasia; G83.11 Monoplegia of lower limb affecting right dominant side; I12.9 Hypertensive chronic kidney disease with stage 1 through stage 4 chronic kidney disease, or unspecified chronic kidney disease; I10 Essential (primary) hypertension; N18.3 Chronic kidney disease, stage 3 (moderate); G30.9 Alzheimer's disease, unspecified; F02.80 Dementia in other diseases classified elsewhere, unspecified severity, without behavioral disturbance, psychotic disturbance, mood disturbance, and anxiety; F03.90 Unspecified dementia, unspecified severity, without behavioral disturbance, psychotic disturbance, mood disturbance, and anxiety; E86.0 Dehydration; E78.00 Pure hypercholesterolemia, unspecified; R32 Unspecified urinary incontinence; M19.90 Unspecified osteoarthritis, unspecified site; N42.9 Disorder of prostate, unspecified; R26.2 Difficulty in walking, not elsewhere classified; R60.0 Localized edema; R53.1 Weakness; E66.9 Obesity, unspecified; F17.210 Nicotine dependence, cigarettes, uncomplicated; D72.829 Elevated white blood cell count, unspecified; H54.7 Unspecified visual loss; Z79.899 Other long term (current) drug therapy; Z79.82 Long term (current) use of aspirin; Z86.73 Personal history of transient ischemic attack (TIA), and cerebral infarction without residual deficits; Z68.31 Body mass index [BMI] 31.0-31.9, adult; Z51.5 Encounter for palliative care; Z87.440 Personal history of urinary (tract) infections
CPT/HCPCS: 36415; 70450; 80053; 81001; 85025; 85610; 97110-GP; 97162-GP; 97530-GP; 99285-25; A9270-GY; J1650; J7120